=== PATIENT | female | born 1970 | race Caucasian/White ===

== ENCOUNTER 2016-09-10 16:07 | Emergency (ER) | payer OTHER ==
[~2016-09-10] VITALS: Ht 167.6 cm; Wt 63.5 kg
[~2016-09-10 16:07] MED LIST: MISCTAB PO; MULTTAB58 PO; RXC5 PO
[2016-09-10 16:19] VITALS: TEMP 37.3; Ht 167.6 cm; Wt 63.5 kg
[2016-09-10] MEDS ORDERED: PEDI-61 PO (16:36)
--- NOTE | 2016-09-10 17:32 | DIAGNOSTIC IMAGING REPORT ---
RIGHT KNEE 3 VIEWS CLINICAL HISTORY: Right knee injury. FINDINGS: AP, crosstable lateral, and sunrise views of the right knee are obtained. No prior studies are available for comparison at the time of dictation. The skeletal structures are well mineralized. No fracture is seen. The joint spaces of the knee are preserved. There is no joint effusion. The overlying soft tissues are within normal limits. IMPRESSION: Unremarkable radiographic assessment of the right knee. Electronically signed by: Vikash Auguste M.D. 09/10/2016 5:31 PM Dictated Date/Time: 09/10/2016 5:30 PM
[2016-09-10] MEDS ORDERED: HYDR-5688 PO (18:04)
[2016-09-10 18:31] VITALS: BP 130/80; PULSE 77; O2SAT 98
--- NOTE | 2016-09-10 21:15 | EMERGENCY ROOM VISIT NOTE ---
ED Visit Note First contact with patient: 16:23 CHIEF COMPLAINT: knee pain HISTORY OF PRESENT ILLNESS: This 46-year-old female patient presents to the emergency department after sustaining an injury to the right knee earlier today. The patient denies any other injuries besides their knee. The patient is without significant swelling or bruising. There is pain medially. They rate the pain as dull and 6/10. The patient states they are not comfortably able to walk on it. No numbness or tingling. No previous injuries to this knee. No ankle, foot or hip pain. REVIEW OF SYSTEMS: A 6 system review of systems was completed with positives and pertinent negatives listed in the HPI. ALLERGIES: Codeine MEDICATIONS: No chronic medications PMH: Otherwise healthy SOCIAL HISTORY: Lives locally, employed PHYSICAL EXAM: Vital Signs: Reviewed Nurse's notes, vital signs stable. GENERAL : White female, no acute distress, but appears in pain, well-developed, well- nourished. MENTAL STATUS: Alert, oriented to person place and time, and cooperative. MUSCULOSKELETAL: The right knee is minimally swollen. There is no significant ecchymosis. There is no joint effusion present. The patient is tender medially. There is medial joint line tenderness. The patella does not subluxate. Range of motion is normal. Strength of the quads and hamstrings is 5/ 5. Marciano's is negative. Juan's and Anterior Drawer tests are negative. There is no laxity with varus and valgus stressing. The foot and toes are warm and well-perfused. Dorsalis pedis pulse 2+. Sensation to pain and light touch is intact. Capillary refill less than 2 seconds. RIGHT KNEE 3 VIEWS CLINICAL HISTORY: Right knee injury. FINDINGS: AP, crosstable lateral, and sunrise views of the right knee are obtained. No prior studies are available for comparison at the time of dictation. The skeletal structures are well mineralized. No fracture is seen. The joint spaces of the knee are preserved. There is no joint effusion. The overlying soft tissues are within normal limits. IMPRESSION: Unremarkable radiographic assessment of the right knee. EMERGENCY DEPARTMENT COURSE: Physical exam and history were performed. Nursing notes and EMR were reviewed. The patient appears to have injured her right knee today. X-rays were obtained and read by myself and radiology showing no acute fracture or dislocation. The patient will be placed in knee immobilizer and crutches. She will be given a short course of Vicodin for pain control. She was otherwise invited back to the ER with any new, worsening, or concerning symptoms. Current/Historical Medications Scheduled Misc Natural Products (Osteo Bi-Flex Advanced Wi), 1 TABLET PO HS Pediatric Multiple Vitamin W/ (Childrens Chewable Multiv), 2 TABS PO BID Scheduled PRN Hydrocodone/Acetaminophen 5MG/325MG (Balko 5MG/325MG), 1 TABLET PO Q6 PRN for Pain Allergies Coded Allergies: Codeine (Verified Allergy, Unknown, MAKE FEEL WEIRD AND NO FEEL WELL, 04/17) Vital Signs Date Time Temp Pulse Resp B/P Pulse Ox O2 Delivery O2 Flow Rate FiO2 09/10/16 18:31 77 16 130/80 98 09/10/16 16:19 37.3 71 20 131/82 100 Room Air Departure Information Impression Primary Impression: Injury of right knee Dispostion Home / Self-Care Condition GOOD Prescriptions Hydrocodone/Acetaminophen 5MG/325MG (Balko 5MG/325MG) Tab 1 TABLET PO Q6 Y for Pain, #12 TAB For Initial Treatment Prov: Jose Rafael Caal PA-C 09/10/16 Referrals Jose Rafael Krishnan M.D. Forms HOME CARE DOCUMENTATION FORM, IMPORTANT VISIT INFORMATION Patient Instructions My [facility] Additional Instructions You were seen and evaluated today on an emergency basis only. This is not a substitute for, or an effort to provide, complete comprehensive medical care. It is not possible to recognize and treat all injuries or illnesses in a single emergency department visit. For this reason it is recommended that you followup with [facility] if symptoms persist over the next week to 2 weeks. For baseline pain relief you may alternate ibuprofen and acetaminophen every 4 hours for pain control. Take 600 mg ibuprofen (Advil) and then 4 hours later take 1000 mg acetaminophen (Tylenol). Do not take more than 3000 mg acetaminophen in a single day. Balko (hydrocodone/acetaminophen) 5/325 mg every 6 hours as needed for worsening breakthrough pain. Do not drink or drive on Balko. This medication will likely make you tired. Do not take Balko and Tylenol at the same time as both contain acetaminophen. Balko may cause constipation. You may wish to take an [id number] stool softener like Colace if this occurs. Wear your knee immobilizer for 4-5 days and advance activity as tolerated. Use your crutches to help with walking. You are welcome to return to the emergency department anytime with new, worsening, or concerning symptoms.
== END 2016-09-10 18:15 | disposition home or self-care (01) ==
LOC: C.EDB 16:08 → C.EDD 18:15
DX: S89.91XA Unspecified injury of right lower leg, initial encounter (principal); X50.1XXA Overexertion from prolonged static or awkward postures, initial encounter